=== PATIENT | female | born 1985 | race African-American/Black ===

== ENCOUNTER 2021-03-15 16:07 | Emergency (ER) | payer MEDICAID ==
[2021-03-15 18:39] LABS: #Monocytes 0.5 10x3/uL (0.0-1.1); #Neutrophils 3.4 10x3/uL (1.5-8.4); %Basophils 0.3 % (0.0-2.0); %Lymphocytes 41.9 % (18.0-47.0); %Monocytes 7.8 % (0.0-10.0); %Neutrophils 49.7 % (40.0-75.0); Hemoglobin 11.3 g/dL (12.0-15.5); Mean Corpuscular HGB CONC 32.6 g/dL (32.0-36.0); Mean Corpuscular Hemoglobin 26.1 pg (27.0-33.0); Mean Corpuscular Volume 80.1 fl (81.6-98.3); Mean Platelet Volume 9.2 fl (7.4-10.4); Platelet Count 374 10x3/uL (150-450); RBC Distribution Width 13.9 % (11.5-14.5); Red Blood Cell (RBC) Count 4.33 10x6/uL (3.90-5.03); White Blood Cell (WBC) Count 6.9 10x3/uL (3.5-10.5)
[2021-03-15 18:47] LABS: ALT (SGPT) 13 U/L (8-55); AST (SGOT) 18 U/L (5-34); Albumin 4.1 g/dL (3.5-5.0); Alkaline Phosphatase 53 U/L (40-110); Anion Gap 11 mmol/L (10-20); BUN (Urea Nitrogen) 7 mg/dL (7.0-18.7); Bilirubin, Total 0.5 mg/dL (0.2-1.2); Calc. Creatinine Clearance 0 mL/min (70-130); Calcium 9.2 mg/dL (7.8-10.44); Carbon Dioxide 24 mmol/L (22-29); Chloride 107 mmol/L (98-107); Globulin 3.4 g/dL (2.4-3.5); Glucose 96 mg/dL (70-105); Lipase 36 U/L (8-78); Potassium 3.4 mmol/L (3.5-5.1); Protein, Total 7.5 g/dL (6.0-8.3); Sodium 139 mmol/L (136-145)
[2021-03-15 18:52] LABS: BHCG - Serum Negative (NEGATIVE); Pregs Control Background? CLEAR/WHITE (CLR/WHITE); Pregs Control Bar Appear? YES (CONTROL BAR)
[2021-03-15 19:09] LABS: Bilirubin Neg (Negative); Blood, Urine 25 (Negative); Clarity Clear (Clear); Glucose, Urine (Dipstick) Normal (Negative); Ketone, Urine Negative (Negative); Leukocyte Negative (Negative); Nitrite Negative (Negative); Protein, Urine (Dipstick) Negative (Neg-Trace); Urobilinogen Normal mg/dL (Less than 2)
[2021-03-15 19:27] LABS: Bacteria/HPF Rare-Few HPF (None Seen); RBC/HPF 0-3 HPF (0-3); Squamous Epithelial 0-3 HPF (0-3); WBC/HPF 0-3 HPF (0-3)
== END 2021-03-15 19:58 | disposition home or self-care (01) ==
LOC: CSHERS 16:07
DX: N92.6 Irregular menstruation, unspecified (principal); D64.9 Anemia, unspecified
CPT/HCPCS: 76856; 80053; 81003; 81015; 83690; 84703; 85025; 86850; 86900; 86901

== ENCOUNTER 2021-03-30 19:10 | Emergency (ER) | payer MEDICAID, OTHER ==
[2021-03-30 21:44] LABS: ALT (SGPT) 14 U/L (8-55); Albumin 3.9 g/dL (3.5-5.0); Alkaline Phosphatase 50 U/L (40-110); Anion Gap 15 mmol/L (10-20); BUN (Urea Nitrogen) 9 mg/dL (7.0-18.7); Bilirubin, Total 0.3 mg/dL (0.2-1.2); Calc. Creatinine Clearance 0 mL/min (70-130); Calcium 9.4 mg/dL (7.8-10.44); Carbon Dioxide 20 mmol/L (22-29); Chloride 105 mmol/L (98-107); Glucose 88 mg/dL (70-105); Potassium 4.2 mmol/L (3.5-5.1); Protein, Total 7.9 g/dL (6.0-8.3); Sodium 136 mmol/L (136-145)
[2021-03-30 21:45] LABS: AST (SGOT) 24 U/L (5-34)
[2021-03-30] MEDS ORDERED: Metoclopramide HCl 10 MG/2 ML VIAL ONE (21:59)
[2021-03-30] MEDS ORDERED: diphenhydrAMINE 50 MG/ML VIAL ONE (21:59)
== END 2021-03-30 22:45 | disposition home or self-care (01) ==
LOC: CSHERS 19:10
DX: R11.10 Vomiting, unspecified (principal)
CPT/HCPCS: 80053; 84484; 93005; 96374; 96375; J1200; J2765

== ENCOUNTER 2021-08-01 13:06 | Emergency (ER) | payer OTHER | END 2021-08-01 14:36 | disposition home or self-care (01) | LOC: CSHERS 13:06 | DX: J02.9 Acute pharyngitis, unspecified (principal) | CPT/HCPCS: 99283 ==

== ENCOUNTER 2022-01-24 11:17 | Observation (INO) | payer OTHER ==
[2022-01-24] MEDS ORDERED: Lidocaine Viscous Sol 2% 15 ml UD Cup ONE (12:14)
[2022-01-24] MEDS ORDERED: Mag-Al Plus 1200 MG/1200 MG/120 MG/30 ML UDCUP ONE (12:14)
[2022-01-24] MEDS ORDERED: Ondansetron PF 4 MG/2 ML Vial ONE (12:14)
[2022-01-24 12:31] LABS: Hemoglobin 11.3 g/dL (12.0-15.5); Mean Corpuscular HGB CONC 33.8 g/dL (32.0-36.0); Mean Corpuscular Hemoglobin 26.3 pg (27.0-33.0); Mean Corpuscular Volume 77.7 fl (81.6-98.3); Mean Platelet Volume 9.5 fl (7.4-10.4); Platelet Count 352 10x3/uL (150-450); RBC Distribution Width 14.7 % (11.5-14.5); White Blood Cell (WBC) Count 9.4 10x3/uL (3.5-10.5)
[2022-01-24 12:41] LABS: MDiff Complete? YES; Manual Diff?? YES
[2022-01-24 12:46] LABS: ALT (SGPT) 26 U/L (8-55); AST (SGOT) 26 U/L (5-34); Albumin 4.1 g/dL (3.5-5.0); Alkaline Phosphatase 67 U/L (40-110); Anion Gap 10 mmol/L (10-20); BUN (Urea Nitrogen) 6 mg/dL (7.0-18.7); Bilirubin, Total 0.6 mg/dL (0.2-1.2); Calc. Creatinine Clearance 0 mL/min (70-130); Calcium 9.4 mg/dL (7.8-10.44); Carbon Dioxide 27 mmol/L (22-29); Chloride 103 mmol/L (98-107); Estimated GFR 104; Globulin 3.7 g/dL (2.4-3.5); Glucose 112 mg/dL (70-105); Lipase 30 U/L (8-78); Potassium 3.4 mmol/L (3.5-5.1); Protein, Total 7.8 g/dL (6.0-8.3); Sodium 137 mmol/L (136-145)
[2022-01-24 12:48] LABS: Lymphocytes 18 % (21-51); Monocytes 3 % (0-10); Neutrophil 70 % (42-75); Reactive Lymphocytes 7 % (0-10)
[2022-01-24 12:49] LABS: Platelet Morphology Comment Appears Adequate
[2022-01-24 12:50] LABS: Anisocytosis SLIGHT = 6-15 cells (100X) (0-5/hpf); Elliptocytes SLIGHT = 2-5 cells (100X) (0-1/hpf)
[2022-01-24 12:56] LABS: Bilirubin Neg (Negative); Blood, Urine 25 (Negative); Clarity Sl. Cloudy (Clear); Glucose, Urine (Dipstick) Normal (Negative); Ketone, Urine Negative (Negative); Leukocyte 500 (Negative); Nitrite Negative (Negative); Protein, Urine (Dipstick) 15 mg/dl (Neg-Trace); Urobilinogen Normal mg/dL (Less than 2)
[2022-01-24 12:58] LABS: Pregnancy Test - Urine (BHCG) Negative (Negative); Pregu Control Background? CLEAR/WHITE (CLR/WHITE); Pregu Control Bar Appear? YES (CONTROL BAR)
[2022-01-24 13:13] LABS: Bacteria/HPF 2+ HPF (None Seen); Squamous Epithelial 21-50 HPF (0-3); Trichomonas/HPF 2+ HPF (None Seen); WBC/HPF Greater than 50 HPF (0-3)
[2022-01-24 13:14] LABS: Epithelial Cast 0-3 LPF (None Seen)
[2022-01-24] MEDS ORDERED: Pantoprazole 40 MG VIAL ONE (14:12)
[2022-01-24] MEDS ORDERED: Ondansetron PF 4 MG/2 ML Vial IVP PRN (14:36)
[2022-01-24] MEDS ORDERED: Ondansetron ODT 4 MG TAB PO PRN (14:36)
[2022-01-24] MEDS ORDERED: cefTRIAXone\\ROCEPHIN 1 GM VIAL ONE (15:21)
[2022-01-24] MEDS ORDERED: Morphine 4 MG/ML VIAL ONE (16:49)
[2022-01-24 18:44] VITALS: BMI 29.3
[2022-01-24] MEDS ORDERED: FLU VACC QS2022-23(6MOS UP)/PF 60 MCG/0.5 ML SYRINGE IM ONE (19:00)
[2022-01-24] MEDS: Acetaminophen 325 MG TAB PO PRN (20:45)
[2022-01-24] MEDS: Sodium Chloride 0.9% 1,000 ML IV SCH (20:45)
[2022-01-24] MEDS: Metoclopramide HCl 10 MG/2 ML VIAL IVP SCH ×2 (20:45→21:00)
[2022-01-24] MEDS: HYDROcodone/Acetaminophen 5/325 mg Tablet PO PRN (21:46)
[2022-01-25] MEDS: Acetaminophen 325 MG TAB PO PRN ×2 (02:14→06:47)
[2022-01-25] MEDS: HYDROcodone/Acetaminophen 5/325 mg Tablet PO PRN ×4 (03:44→21:09)
[2022-01-25 04:35] LABS: Anion Gap 10 mmol/L (10-20); BUN (Urea Nitrogen) 7 mg/dL (7.0-18.7); Calc. Creatinine Clearance 138 mL/min (70-130); Calcium 8.7 mg/dL (7.8-10.44); Carbon Dioxide 24 mmol/L (22-29); Chloride 105 mmol/L (98-107); Estimated GFR 104; Glucose 104 mg/dL (70-105); Sodium 135 mmol/L (136-145)
[2022-01-25 04:37] LABS: Potassium 4.3 mmol/L (3.5-5.1)
[2022-01-25 05:13] LABS: #Monocytes 0.6 10x3/uL (0.0-1.1); #Neutrophils 5.5 10x3/uL (1.5-8.4); %Basophils 0.3 % (0.0-2.0); %Eosinophils 0.1 % (0.0-6.0); %Lymphocytes 29.4 % (18.0-47.0); %Monocytes 6.5 % (0.0-10.0); %Neutrophils 63.4 % (40.0-75.0); Hemoglobin 10.2 g/dL (12.0-15.5); Mean Corpuscular HGB CONC 32.8 g/dL (32.0-36.0); Mean Corpuscular Hemoglobin 25.8 pg (27.0-33.0); Mean Corpuscular Volume 78.7 fl (81.6-98.3); Mean Platelet Volume 11.1 fl (7.4-10.4); Platelet Count 276 10x3/uL (150-450); Platelet Morphology Comment Appears Adequate; Red Blood Cell (RBC) Count 3.95 10x6/uL (3.90-5.03); White Blood Cell (WBC) Count 8.6 10x3/uL (3.5-10.5)
[2022-01-25 05:14] LABS: RBC Morphology Normal
[2022-01-25] MEDS: Metoclopramide HCl 10 MG/2 ML VIAL IVP SCH ×2 (09:21→21:09)
[2022-01-25] MEDS: Iron, Sodium Ferric Gluconate 250 MG, Admixture Fee 1 EACH in Sodium Chloride 0.9% 250 ... IVPB SCH (13:47)
[2022-01-25] MEDS: Sodium Chloride 0.9% 1,000 ML IV SCH (13:48)
[2022-01-25] MEDS ORDERED: cefTRIAXone\\ROCEPHIN 1 GM in Sodium Chloride 0.9% 100 ML IVPB SCH ×2 (15:00→16:00)
[2022-01-25] MEDS: metroNIDAZOLE 500 MG TAB PO SCH (21:09)
[2022-01-26] MEDS: HYDROcodone/Acetaminophen 5/325 mg Tablet PO PRN (02:18)
[2022-01-26] MEDS ORDERED: Iron, Sodium Ferric Gluconate 250 MG, Admixture Fee 1 EACH in Sodium Chloride 0.9% 250 ... IVPB SCH (04:30)
[2022-01-26 04:34] LABS: Anion Gap 11 mmol/L (10-20); BUN (Urea Nitrogen) 8 mg/dL (7.0-18.7); Calc. Creatinine Clearance 131 mL/min (70-130); Calcium 8.8 mg/dL (7.8-10.44); Carbon Dioxide 25 mmol/L (22-29); Chloride 104 mmol/L (98-107); Estimated GFR 98; Glucose 94 mg/dL (70-105); Potassium 3.9 mmol/L (3.5-5.1); Sodium 136 mmol/L (136-145)
[2022-01-26] MEDS: Iron, Sodium Ferric Gluconate 250 MG, Admixture Fee 1 EACH in Sodium Chloride 0.9% 250 ... IVPB SCH (04:35)
[2022-01-26 04:48] LABS: Mean Corpuscular HGB CONC 33.1 g/dL (32.0-36.0); Mean Corpuscular Hemoglobin 25.8 pg (27.0-33.0); Mean Corpuscular Volume 77.8 fl (81.6-98.3); Mean Platelet Volume 9.3 fl (7.4-10.4); Platelet Count 321 10x3/uL (150-450); RBC Distribution Width 14.8 % (11.5-14.5); Red Blood Cell (RBC) Count 3.88 10x6/uL (3.90-5.03); White Blood Cell (WBC) Count 8.3 10x3/uL (3.5-10.5)
[2022-01-26] MEDS ORDERED: Nitroglycerin 0.4 MG TAB (25 Tab Bottle) SL SCH (05:30)
[2022-01-26] MEDS: Sodium Chloride 0.9% 1,000 ML IV SCH (05:59)
[2022-01-26 06:01] LABS: MDiff Complete? YES
[2022-01-26 06:25] LABS: Band 2 % (5-11); Lymphocytes 33 % (21-51); Monocytes 5 % (0-10); Neutrophil 60 % (42-75)
[2022-01-26 06:26] LABS: Hypochromia SLIGHT = 6-15 cells (100X) (0-5/hpf)
[2022-01-26 06:27] LABS: Anisocytosis SLIGHT = 6-15 cells (100X) (0-5/hpf); Elliptocytes SLIGHT = 2-5 cells (100X) (0-1/hpf); Platelet Morphology Comment Appears Adequate
[2022-01-26 09:02] LABS: Troponin I Less than 0.010 ng/mL (< 0.028)
[2022-01-26] MEDS: metroNIDAZOLE 500 MG TAB PO SCH (09:05)
[2022-01-26] MEDS: Metoclopramide HCl 10 MG/2 ML VIAL IVP SCH (09:06)
[2022-01-26 11:53] VITALS: BP 121/78; TEMP 98.2
== END 2022-01-26 12:23 | disposition home or self-care (01) ==
LOC: CSHERS 11:17 → INTOOBSV 18:11 → CSHTELE 18:11
PROVIDERS: ADMIT Internal Medicine; ATTEND Student in an Organized Health Care Education/Training Program
DX: R10.13 Epigastric pain (principal); M54.9 Dorsalgia, unspecified; N39.0 Urinary tract infection, site not specified; R31.9 Hematuria, unspecified; J45.909 Unspecified asthma, uncomplicated; D50.9 Iron deficiency anemia, unspecified; N28.1 Cyst of kidney, acquired; Z20.822 Contact with and (suspected) exposure to COVID-19; Z79.899 Other long term (current) drug therapy; Z88.0 Allergy status to penicillin
CPT/HCPCS: 36415; 76770; 80048; 80053; 81003; 81015; 81025; 83605; 83690; 84484; 85025; 87086; 93005; 93010; 94760; 96361; 96365; 96367; 96375; 96376; C9113; G0378; J0696; J2270; J2405; J2765; J2916; J3490; J7050; U0003; U0005

== ENCOUNTER 2022-06-06 16:21 | Emergency (ER) | payer OTHER ==
[2022-06-06] MEDS ORDERED: Acetaminophen 500 MG TAB ONE (17:07)
== END 2022-06-06 18:02 | disposition home or self-care (01) ==
LOC: CSHERS 16:21
DX: S93.401A Sprain of unspecified ligament of right ankle, initial encounter (principal); W10.9XXA Fall (on) (from) unspecified stairs and steps, initial encounter